=== PATIENT | female | born 1955 | race Caucasian/White ===

== ENCOUNTER 2017-06-08 15:48 | Emergency (ER) | payer MEDICARE | END 2017-06-08 16:30 | disposition home or self-care (01) | LOC: BURERS 15:48 | DX: M54.12 Radiculopathy, cervical region (principal); E03.9 Hypothyroidism, unspecified; F31.9 Bipolar disorder, unspecified; F17.200 Nicotine dependence, unspecified, uncomplicated | CPT/HCPCS: 99283 ==

== ENCOUNTER 2017-07-07 14:43 | Emergency (ER) | payer MEDICARE ==
[2017-07-07] MEDS ORDERED: Ketorolac Tromethamine 30 MG/ML VIAL ONE (15:16)
== END 2017-07-07 15:36 | disposition home or self-care (01) ==
LOC: BURERS 14:43
DX: M54.2 Cervicalgia (principal); E03.9 Hypothyroidism, unspecified; F31.9 Bipolar disorder, unspecified; F17.200 Nicotine dependence, unspecified, uncomplicated
CPT/HCPCS: 96372; J1885

== ENCOUNTER 2017-07-10 16:43 | Emergency (ER) | payer MEDICARE ==
[2017-07-10] MEDS ORDERED: Ketorolac Tromethamine 30 MG/ML VIAL ONE (17:13)
== END 2017-07-10 17:26 | disposition home or self-care (01) ==
LOC: BURERS 16:43
DX: S33.5XXA Sprain of ligaments of lumbar spine, initial encounter (principal); M75.92 Shoulder lesion, unspecified, left shoulder; E03.9 Hypothyroidism, unspecified; F31.9 Bipolar disorder, unspecified; F17.200 Nicotine dependence, unspecified, uncomplicated; Y09 Assault by unspecified means
CPT/HCPCS: 96372; J1885

== ENCOUNTER 2018-09-25 07:34 | Emergency (ER) | payer MEDICARE | END 2018-09-25 08:09 | disposition home or self-care (01) | LOC: BURERS 07:34 | DX: N39.0 Urinary tract infection, site not specified (principal); E03.9 Hypothyroidism, unspecified; I10 Essential (primary) hypertension; F31.9 Bipolar disorder, unspecified; F17.200 Nicotine dependence, unspecified, uncomplicated; Z79.899 Other long term (current) drug therapy | CPT/HCPCS: 99283 ==